=== PATIENT | female | born 2000 | race Caucasian/White ===

== ENCOUNTER 2022-12-28 14:21 | Emergency (ER) | payer OTHER, BC, SELFPAY ==
--- NOTE | ~2022-12-28 | XR_ITS ---
XR thoracic spine 3V DATE: 12/28/2022 14:45 INDICATION: Thoracic back pain, tenderness with deep inspiration TECHNIQUE: AP and lateral views COMPARISON: None FINDINGS: No fracture or dislocation of the thoracic spine. The thoracic pedicles are intact. No pa raspinal soft tissue thickening. IMPRESSION: Negative Reviewed, dictated and finalized at location B. WORKER IMPRESSION: Negative
[2022-12-28 14:30] VITALS: BP 133/80; PULSE 91; RESP 20; TEMP 36.9; O2SAT 100
--- NOTE | 2022-12-28 14:52 | ED.BACK ---
HPI - Back Pain/Injury General Chief Complaint: Back Pain/Injury Stated Complaint: UPPER BACK PAIN WITH DEEP BREATH Time Seen by Provider: 12/28/22 14:35 Source: patient Mode of arrival: ambulatory Limitations: no limitations History of Present Illness HPI Narrative: 22-year-old female presents with complaint of mid back pain since yesterday. Denies injury. No chest pain or shortness of breath. Reports pressure to mid/upper back. Pain worse when taking deep breath. Has not taking any wauc-gga-ulyuwsn pain meds to treat her symptoms. Ambulatory with steady gait. All systems reviewed and negative except as noted above. Related Data Allergies Allergy/AdvReac Type Severity Reaction Status Date / Time No Known Allergies Allergy Verified 12/28/22 14:34 Review of Systems Review of Systems: CONSTITUTIONAL: Denies fever, chills, or sweats. EYES: Denies visual changes, redness, or discharge. ENT: Denies rhinorrhea, congestion, sore throat, or otalgia. CARDIOVASCULAR: Denies chest pain, palpitations, or edema. RESPIRATORY: Denies cough or dyspnea. GASTROINTESTINAL: Denies abdominal pain, nausea, vomiting, or diarrhea. GENITOURINARY: Denies dysuria or hematuria. SKIN: Denies rash or itching. MUSCULOSKELETAL: Reports mid upper back pain. Denies joint pain, or myalgia. NEUROLOGIC: Denies headache, numbness, or weakness. PSYCHIATRIC: Denies anxiety or depression. All other systems reviewed are negative, except as documented in HPI. PMFSH Comments At time of signature, agree with nursing past medical, surgical, social and family history. There is no relevant family history pertinent to the presenting complaint. Exam Narrative: GENERAL: This is a well-nourished, well-developed patient, in no apparent distress. HEAD: normocephalic, atraumatic. EYES: PERRL. Sclera clear/white. Vision is grossly intact. EARS: External ears normal NOSE: External nose normal NECK: Neck supple, non-tender without lymphadenopathy, masses or thyromegaly. CARDIOVASCULAR: Regular rate and rhythm without murmurs, gallops, or rubs. RESPIRATORY: Clear to auscultation. Breath sounds equal bilaterally. No wheezes, rales, or rhonchi. SKIN: warm, Dry, intact with no suspicious lesions or rash, good texture and turgor. NEURO: awake, alert, and oriented to person, place and time. There were no obvious focal neurologic abnormalities. EXTREMITIES: No joint tenderness, effusion, or edema noted. BACK: tenderness T5-T7 on palpation. no deformity. no muscular tenderness/spasm. ROM normal. Course Course Level of Care: Express Care Visit Vital Signs Vital signs: Vital Signs Temperature 36.9 C 12/28/22 14:30 Pulse Rate 91 12/28/22 14:30 Respiratory Rate 20 12/28/22 14:30 Blood Pressure 133/80 12/28/22 14:30 Pulse Oximetry 100 12/28/22 14:30 Oxygen Delivery Room Air 12/28/22 14:30 Temperature 36.9 C 12/28/22 14:30 Pulse Rate 91 12/28/22 14:30 Respiratory Rate 20 12/28/22 14:30 Blood Pressure 133/80 12/28/22 14:30 Pulse Oximetry 100 12/28/22 14:30 Oxygen Delivery Room Air 12/28/22 14:30 Reviewed MDM - Back Pain/Injury MDM Narrative Medical decision making narrative: Patient is aware of diagnosis, understands and agrees to treatment plan. Anticipatory guidance given. Patient agrees to follow-up as directed and is aware of reasons to seek care at the emergency department. Portions of this record may have been created with voice recognition software Lungs clear to auscultation. Thoracic x-ray normal. 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 Recommend she work on her posture when sitting/standing. Recommend taking ibuprofen every 6-8 hours. Will prescribe steroids to treat inflammation. Imaging Data My impression: agree with radiologist Radiologist's impression: XR thoracic spine 3V DATE: 12/28/2022 14:45 INDICATION: Thoracic back pain, tenderness with deep inspir
== END 2022-12-28 15:00 | disposition home or self-care (01) ==
PROVIDERS: Emergency Provider Nurse Practitioner Family
DX: S29.012A Strain of muscle and tendon of back wall of thorax, initial encounter (principal); X58.XXXA Exposure to other specified factors, initial encounter
CPT/HCPCS: 72072; 99213; G0463

== ENCOUNTER 2023-02-07 08:02 | Emergency (ER) | payer OTHER, BC, SELFPAY ==
--- NOTE | 2023-02-07 08:06 | ED.URI ---
HPI - URI/Sore Throat General Chief Complaint: Upper Respiratory Infection Stated Complaint: Sore Throat Time Seen by Provider: 02/07/23 08:04 Source: patient Mode of arrival: ambulatory Limitations: no limitations History of Present Illness HPI Narrative: Berta is a 22-year-old female patient presenting to the clinic today with complaints of a sore throat x2 days. She reports no known fever, headache, shortness of breath, or chest pain. MD elicited complaint: sore throat and nasal congestion Related Data Allergies Allergy/AdvReac Type Severity Reaction Status Date / Time No Known Allergies Allergy Verified 12/28/22 14:34 Review of Systems Review of Systems: Pertinent positives per HPI. Patient denies any fever, chills, rash, headache, visual changes, dizziness, cough, shortness of breath, chest pain, palpitations, nausea, vomiting, diarrhea, constipation, abdominal pain, or any urinary issues. PMFSH Comments At the time of my signature, I reviewed and agree with the nursing past medical, surgical, social, and family history. There is no relevant family history pertinent to the patient complaint. Exam Narrative: General: Well-developed, well nourished, in no apparent distress Head: Normocephalic, atraumatic Eyes: Pupils equally round and reactive to light bilaterally, EOM intact, sclera and conjunctive clear, no discharge, lids normal Ears: TMs intact and clear, ear canals clear, no drainage, grossly hearing normal. Nose: Nares patent, clear nasal discharge, no inflammation, no sinus tenderness. Mouth: Oral pharynx red with bilateral tonsillar enlargement and exudate without lesions or masses, good dentition, MMM. Neck: Supple, trachea midline, enlargement of anterior cervical nodes, no thyroid masses or goiter palpable. Cardio: Regular rate and rhythm, s1 and s2 normal, no murmur appreciated. Resp: Clear to auscultation bilaterally, no rhonchi, rales, wheezing or rubs Course Course Emergency Course: Portions of this record may have been created with voice recognition software. Level of Care: Express Care Visit Vital Signs Vital signs: Vital signs reviewed MDM - URI/Sore Throat MDM Narrative Medical decision making narrative: At the time of visit patient is resting comfortably on the exam table. Patient appears to be nontoxic. Strep screen screen was obtained and positive in the clinic today. Prescription for amoxicillin and prednisone was sent to the pharmacy. Supportive measures were discussed with the patient and they voiced understanding discharge instructions and agrees to treatment plan. Return precautions reviewed Differential Diagnosis Differential diagnosis: Likely upper respiratory infection, otitis media, sinusitis, viral infection, bronchitis, influenza, pharyngitis and other (COVID) Discharge Plan Discharge Clinical Impression: Acute streptococcal pharyngitis Patient Disposition: Home, Self-Care Condition: Stable Instructions: Antibiotic Form, Strep Throat (ED) Additional Instructions: Strep test was positive in the clinic today. Change your toothbrush in 24 hours after initiation of the antibiotics Take prescription medications only as prescribed-amoxicillin, viscous lidocaine, and prednisone Increase fluids and stay well hydrated Tylenol/motrin for pain/fever Flonase and OTC antihistamines as directed Vicks vapor rub to open sinuses Sinus rinses for congestion Cepacol spray, cough drops, throat lozenges, warm tea with honey/lemon, gargle salt water to soothe throat BRAT diet for diarrhea Clear liquids x 24 hours then advance as tolerated for nausea/vomiting Go to the ED if you develop a worsening in your condition- high fever not controlled by Tylenol or Motrin, dehydration, weakness, lethargy, shortness of breath, or chest pain. Follow up with your PCP in 3-5 days if symptoms persist. Prescriptions: New amoxicillin 500 mg capsule 500 m
[2023-02-07 08:17] VITALS: BP 115/78; PULSE 78; RESP 16; TEMP 36.8; O2SAT 99
== END 2023-02-07 08:27 | disposition home or self-care (01) ==
PROVIDERS: Emergency Provider Nurse Practitioner Family
DX: J02.0 Streptococcal pharyngitis (principal)
CPT/HCPCS: 87880; 99213; G0463

== ENCOUNTER 2023-10-25 12:07 | Emergency (ER) | payer OTHER, BC, SELFPAY ==
[2023-10-25 12:15] VITALS: BP 121/82; PULSE 82; RESP 16; TEMP 36.9; O2SAT 100
--- NOTE | 2023-10-25 12:18 | ED.GENADULT ---
HPI - General Adult General Chief complaint: Abdominal Pain Stated complaint: Nausea/Vomiting Time Seen by Provider: 10/25/23 12:18 Source: patient, RN notes reviewed and old records reviewed Mode of arrival: ambulatory Limitations: no limitations History of Present Illness HPI narrative: 23-year-old female to Express Care for complaint of nausea with vomiting upon wakening today. Patient reports vomiting 3 times this morning. patient reports that she has not vomited the last several hours that she feels as though she is doing better. Patient states that she has been able to tolerate fluids by mouth without vomiting the past several hours. Patient denies abdominal pain, current nausea vomiting, diarrhea, urinary changes, fever, Allergies, pertinent medical history. Patient has not attempted to treat at home with [id number] remedies. Patient is sitting comfortably in exam room in no acute distress. Respirations even and nonlabored. Related Data Home Medications Medication Instructions Recorded Confirmed desogestrel 0.15 mg-ethinyl 1 tablet PO DAILY 10/25/23 10/25/23 estradiol 0.03 mg tablet (Isibloom) Allergies Allergy/AdvReac Type Severity Reaction Status Date / Time No Known Allergies Allergy Verified 10/25/23 12:13 Review of Systems Review of Systems: All systems reviewed & are unremarkable except as noted in HPI and below Constitutional: Constitutional: Reports no additional constitutional complaints Eyes: Eyes: Reports no additional eye complaints ENT: Reports system reviewed and no additional complaints, except as documented Cardiovascular: Cardiovascular: Reports no additional cardiovascular complaints, Denies chest pain and Denies dyspnea Respiratory: Respiratory: Reports no additional respiratory complaints, Denies cough and Denies dyspnea Gastrointestinal: Gastrointestinal: Reports as per HPI, Reports nausea and Reports vomiting Musculoskeletal: Musculoskeletal: Reports no additional musculoskeletal complaints Neurologic: Reports system reviewed and no additional complaints, except as documented Psychiatric: Psychiatric: Reports no additional psychiatric complaints PMFSH Comments At the time of my signature, I reviewed and agree with the nursing past medical, surgical, social, and family history. There is no relevant family history pertinent to the patient complaint. Exam Const: General: cooperative, healthy appearing, comfortable, no acute distress, alert and well nourished Nutritional Appearance: well nourished Orientation/consciousness: patient oriented x3 Limitations: no limitations HENMT: Head: normal to inspection Ears: external ears normal Face/Nose/Sinus: Normal external nose present, Normal nares present, normal facial exam, No erythema and No edema Face and sinus: normal facial exam, no erythema and no edema Mouth: Yes Normal oral and palatal mucosa present Eyes: General: appearance normal, both eyes and all related structures Neck: Neck: normal visual inspection, full ROM and no meningeal signs Lymphatic: no lymphadenopathy noted and no lymphedema noted Chest: Chest palpation & inspection: normal inspection of the chest Resp: Effort & Inspection: normal respiratory effort and able to speak in complete sentences Auscultation: clear to auscultation bilaterally Cardio: Jugular venous distension: no JVD Rate: regular rate Rhythm: regular rhythm Back/Spine/Pelvis: Cervical Spine: cervical ROM normal Skin: General skin exam: normal color, no rashes or lesions noted and turgor normal Neuro: General: patient oriented x3, gait normal, moves all extremities and no meningeal signs Speech: normal speech Gait exam (Neuro): Normal gait present Extrem: General: normal to inspection, full ROM and capillary refill normal Psych: Appearance: grossly normal and well kempt Course Course Emergency Course: Some parts of this dictation were generated by voice recognition
== END 2023-10-25 12:26 | disposition home or self-care (01) ==
PROVIDERS: Emergency Provider Nurse Practitioner Family
DX: K52.9 Noninfective gastroenteritis and colitis, unspecified (principal)
CPT/HCPCS: 99211; G0463

== ENCOUNTER 2023-10-29 11:11 | Emergency (ER) | payer OTHER, BC, SELFPAY ==
[2023-10-29 11:38] VITALS: BP 134/72; PULSE 104; RESP 20; TEMP 37.1; O2SAT 100
--- NOTE | 2023-10-29 12:44 | ED.NAVMDI ---
HPI - Nausea/Vomiting/Diarrhea General Chief complaint: Nausea/Vomiting/Diarrhea Stated complaint: Nausea and Vomiting Time Seen by Provider: 10/29/23 12:38 Source: patient and RN notes reviewed Mode of arrival: ambulatory Limitations: no limitations History of Present Illness HPI Narrative: Patient presents today complaining of nausea and vomiting that started at 3:30 a.m. this morning. She had 3 episodes of vomiting at that time and has not vomited since about 4:00 a.m.. She has been able to keep water down since that time, but has not tried food. States she had a small episode of diarrhea. Denies any abdominal pain or fever. Reports she came in today for work note as she had to call in today. States she had some similar symptoms 4 days ago and was seen here at [facility]. Related Data Home Medications Medication Instructions Recorded Confirmed desogestrel 0.15 mg-ethinyl 1 tablet PO DAILY 10/25/23 10/29/23 estradiol 0.03 mg tablet (Isibloom) Allergies Allergy/AdvReac Type Severity Reaction Status Date / Time No Known Allergies Allergy Verified 10/29/23 12:14 Review of Systems Review of Systems: CONSTITUTIONAL: Denies body aches, fever, chills, or sweats. EYES: Denies visual changes, redness, or discharge. ENT: Denies rhinorrhea, congestion, sore throat, or otalgia. CARDIOVASCULAR: Denies chest pain, palpitations, or edema. RESPIRATORY: Denies cough or dyspnea. GASTROINTESTINAL: Denies abdominal pain. + nausea, vomiting, diarrhea GENITOURINARY: Denies dysuria or hematuria. SKIN: Denies rash, itching, or wounds. MUSCULOSKELETAL: Denies back pain, joint pain, or myalgia. NEUROLOGIC: Denies headache, numbness, tingling, or weakness. PSYCH: Denies depression or anxiety. PMFSH Comments At time of signature, I have reviewed and agree with nursing past medical, surgical, social and family history unless otherwise noted. Please see nursing chart for further information. There is no relevant family history pertinent to the presenting complaint Exam Narrative: GENERAL: Well-appearing, well-nourished, and in no acute distress. HEAD: Normocephalic, atraumatic. EYES: EOMI. No redness or drainage. Conjunctivae normal. ENT: Mucous membranes pink and moist. NECK: Normal AROM. CHEST: No respiratory distress. Clear to auscultation. HEART: Regular rate and rhythm. No murmur appreciated. Normal peripheral pulses. ABDOMEN: Soft, nontender, nondistended, normal active bowel sounds. EXTREMITIES: Normal range of motion. No edema. SKIN: Warm, dry, no rash. Capillary refill normal. Normal skin turgor. NEURO: No focal deficits. Alert and oriented x3. Gait steady. PSYCH: Normal affect. No signs of depression or anxiety. Course Course Level of Care: Express Care Visit Vital Signs Vital signs: Vital Signs Temperature 98.7 F 10/29/23 11:38 Pulse Rate 104 H 10/29/23 11:38 Respiratory Rate 20 10/29/23 11:38 Blood Pressure 134/72 10/29/23 11:38 Pulse Oximetry 100 10/29/23 11:38 Temperature 98.7 F 10/29/23 11:38 Pulse Rate 104 H 10/29/23 11:38 Respiratory Rate 20 10/29/23 11:38 Blood Pressure 134/72 10/29/23 11:38 Pulse Oximetry 100 10/29/23 11:38 Reviewed MDM - Nausea/Vomiting/Diarrhea MDM Narrative Medical decision making narrative: Patient's symptoms have resolved. Will provide her with a short course of Zofran in case symptoms return. Work note provided. Anticipatory guidance given. Differential Diagnosis Differential diagnosis: Likely food poisoning, gastroenteritis, dehydration and other (Viral syndrome) Critical Care Time Critical Care Time Critical Care Time: No Discharge Plan Discharge Clinical Impression: Nausea & vomiting Qualifiers: Vomiting type: unspecified Qualified Code(s): R11.2 - Nausea with vomiting, unspecified Patient Disposition: Home, Self-Care Condition: Stable Instructions: Acute Nausea and Vomiting (ED) Additional Instr
== END 2023-10-29 12:52 | disposition home or self-care (01) ==
PROVIDERS: Emergency Provider Nurse Practitioner
DX: R11.2 Nausea with vomiting, unspecified (principal); Z80.9 Family history of malignant neoplasm, unspecified
CPT/HCPCS: 99213; G0463

== ENCOUNTER 2024-03-28 09:23 | Emergency (ER) | payer OTHER, BC, SELFPAY ==
[2024-03-28 09:34] VITALS: BP 137/81; PULSE 94; RESP 16; TEMP 37.1; O2SAT 100
--- NOTE | 2024-03-28 09:44 | ED_ITS ---
HPI - URI/Sore Throat General Chief Complaint: Upper Respiratory Infection Stated Complaint: BODY ACHES/SINUS PRESSURE/HEADACHE/FEVER Time Seen by Provider: 03/28/24 09:44 Source: patient Mode of arrival: ambulatory Limitations: no limitations History of Present Illness HPI Narrative: 23-year-old female presents with complaint of cough, nasal congestion, fatigue starting yesterday. 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 No chest pain or shortness of breath. Denies nausea vomiting diarrhea. All systems reviewed and negative except as noted above. Related Data Home Medications ?Medication ?Instructions ?Recorded ?Confirmed ?Last Taken ?Type desogestrel 0.15 mg-ethinyl 1 tablet PO DAILY 10/25/23 03/28/24 Unknown History estradiol 0.03 mg tablet (Isibloom) Allergies Allergy/AdvReac Type Severity Reaction Status Date / Time No Known Allergies Allergy Verified 03/28/24 09:32 Review of Systems Review of Systems: CONSTITUTIONAL: Denies fever, chills, or sweats. Reports fatigue. EYES: Denies visual changes, redness, or discharge. ENT: Reports rhinorrhea, congestion, sore throat. Denies otalgia. CARDIOVASCULAR: Denies chest pain, palpitations, or edema. RESPIRATORY: Reports cough. Denies dyspnea. GASTROINTESTINAL: Denies abdominal pain, nausea, vomiting, or diarrhea. GENITOURINARY: Denies dysuria or hematuria. SKIN: Denies rash or itching. MUSCULOSKELETAL: Denies back pain, joint pain, or myalgia. NEUROLOGIC: Denies headache, numbness, or weakness. PSYCHIATRIC: Denies anxiety or depression. All other systems reviewed are negative, except as documented in HPI. COUNTS INCLUDE 234 BEDS AT THE [facility] Surgical History Surgical History (Updated 11/01/23 @ 09:20 by Amaya Jeronimo CMA) [place] teeth removed 2020 Social History Social History (Updated 11/01/23 @ 09:23 by Amaya Jeronimo CMA) Smoking status: Never smoker Alcohol intake: current Alcohol use details: drinks 1-4 per week Substance use: never Do You Feel Safe in your Home?: Yes Lack of Transportation: No Lack of Food: Never True Current Housing: I Have Housing Concerned About Future Housing: No Difficulty Paying Gas/Electric Bills: No Difficulty Paying for Meds: No Currently Unemployed: No Education: Associate Degree Difficulty w/ Childcare or Family Care: No Comments At time of signature, agree with nursing past medical, surgical, social and family history. There is no relevant family history pertinent to the presenting complaint. Exam Narrative: GENERAL: This is a well-nourished, well-developed patient, ill-appearing but no acute distress HEAD: normocephalic, atraumatic. EYES: PERRL. Sclera clear/white. Vision is grossly intact. EARS: External ears normal, auditory canals clear and without drainage, TMs normal without perforation. Hearing grossly intact. NOSE: External nose normal with congestion, clear nasal drainage THROAT: Mucous membranes moist, posterior pharynx clear. NECK: Neck supple, non-tender without lymphadenopathy, masses or thyromegaly. CARDIOVASCULAR: Regular rate and rhythm without murmurs, gallops, or rubs. RESPIRATORY: Clear to auscultation. Breath sounds equal bilaterally. No wheezes, rales, or rhonchi. SKIN: warm, Dry, intact with no suspicious lesions or rash, good texture and turgor. NEURO: awake, alert, and oriented to person, place and time. There were no obvious focal neurologic abnormalities. EXTREMITIES: No joint tenderness, effusion, or edema noted. Course Course Level of Care: Express Care Visit Vital Signs Vital signs: Vital Signs Temperature 37.1 C 03/28/24 09:34 Pulse Rate 94 03/28/24 09:34 Respiratory Rate 16 03/28/24 09:34 Blood Pressure 137/81 03/28/24 09:34 Pulse Oximetry 100 03/28/24 09:34 Temperature 37.1 C 03/28/24 09:34 Pulse Rate 94 03/28/24 09:34 Respiratory Rate 16 03/28/24 09:34 Blood Pressure 137/81 03/28/24 09:34 Pulse Oximetry 100 03/28/24 09:34 Reviewed MDM - URI/Sore Throat MDM Narrative Medical decision making narrative: Positive influenza a. Patient is well-appearing, nontoxic. Will treat with Tamiflu. Please be advised this is a medical document. It is intended for gwze-fs-hybd communication. It is written in medical language and may contain unfamiliar abbreviations or verbiage. Medical documents are intended to carry relevant information, facts as evident, and the clinical opinion of the practitioner at the time of the encounter. This report may have been done utilizing a voice recognition system. Attempts have been made to correct errors. However, there may be uncorrected grammatical, spelling, and recognition errors present. The file time of this note does not necessarily represent the time of service. Differential Diagnosis Differential diagnosis: Likely upper respiratory infection, sinusitis, viral infection, influenza and pharyngitis Discharge Plan Discharge Clinical Impression: Influenza A Patient Disposition: Home, Self-Care Condition: Stable Instructions: Influenza (ED) Additional Instructions: You were positive for influenza today. Influenza is a virus and symptoms may last 10-14 days. Take Tamiflu as prescribed. Taking oldv-udf-yqfcovn medication to treat her symptoms such as DayQuil NyQuil cold and flu. Take as directed on packaging. Take Tylenol or ibuprofen every 6-8 hours as needed for pain and fever. Drink plenty of water and rest. Follow-up your primary care physician if symptoms are not improving. Patient Language: Albanian Prescriptions: New oseltamivir [Tamiflu] 75 mg capsule 75 mg PO Q12H 5 Days Qty: 10 0RF No Action desogestrel-ethinyl estradiol [Isibloom] 0.15-0.03 mg tablet 1 tablet PO DAILY escitalopram oxalate [Lexapro] 10 mg tablet 10 mg PO DAILY Qty: 30 2RF Follow-up/Referrals: Rachelle Hannah DO [Primary Care Provider] - Stand Alone Forms: Work/School Release IP Time of Disposition: 09:51
[2024-03-28 09:52] LABS: EDCOVIDSCREEN Negative (Negative); EDINFLUASCREEN Positive (Negative); EDINFLUBSCREEN Negative (Negative)
== END 2024-03-28 09:57 | disposition home or self-care (01) ==
PROVIDERS: Emergency Provider Nurse Practitioner Family; PCP Family Medicine
DX: J10.1 Influenza due to other identified influenza virus with other respiratory manifestations (principal); Z20.822 Contact with and (suspected) exposure to COVID-19
CPT/HCPCS: 87426; 87804; 99213; G0463

== ENCOUNTER 2024-11-12 12:10 | Outpatient (CLI) | payer OTHER, BC, SELFPAY ==
--- OUTSIDE RECORDS SUMMARY | 2024-11-12 12:13 | XMS_ITS | Clinical Summary ---
Author Organization [facility] Address [address] [place] [address] Care Team Providers Care Autocad Name Role Phone Yvonne Petersen Primary Care Provider + [phone] Allergies No known active allergies Medications No known medications Active Problems No known active problems Immunizations Immunization Administration Dates Next Due DTaP (Daptacel) 09/05/2006, 3,01/02/2002,2001 Dtap/Hib 12/11/2002 Flumist (Intranasal) 01/13/2010,11/12/2008,11/27 H1N1 INTRANASAL 2009 INFLUENZA 03/26/2009,2009 H1N1 Intranasal 2009 Influenza 03/26/2009,2009 Hepatitis A Vaccine - 2 Dose 09/05/2012,09/06/19 07 Hepatitis B 09/06/2002,03/02/2002,2001 Hib Vaccine, Prp-T 03/02/2002,01/02/2002, 002 Influenza (Generic) 01/18/2006,12/07/2004,2003 MMR 09/05/2006,12/11/2002 Menactra 11/02/2018,09/05/2012 PFIZER COVID-19 (ORIGINAL FORMULATION, PURPLE CAP) mRNA, LNP-S, PF, 30 MCG/0.3 ML DOSE 11/14/2020,06/16/2020 Polio Ipv (Generic) 09/05/2006, 3,01/02/2002,2001 Tdap (Adacel) 06/02/2021,09/05/2012 Varicella (Generic) 09/06/2002 Varicella Vaccine 09/05/2012 Family History Medical History Relation Comments Cancer Maternal Grandfather Cancer Maternal Grandmother Cancer Paternal Grandfather Relation Status Comments Father Alive Maternal Grandfather Maternal Grandmother Mother Alive Paternal Grandfather Social History Tobacco Use Types Packs/Day Years Used Date Smoking Tobacco: Never Smokeless Tobacco: Never Tobacco Cessation:Counseling Given: No Alcohol Use Standard Drinks/Week Comments Not Currently 0 (1 standard drink = 0.6 oz pur e alcohol) PHQ-2 Answer Date Recorded Patient Health Questionnaire-2 Score 0 07/13/2022 Comments No Sex and Gender Information Value Date Recorded Sex Assigned at Not on file Legal Sex Female 6:21 PM CDT Gender Identity Not on file Sexual Orientation Not on file Last Filed Vital Signs Vital Sign Reading Time Taken Comments Blood Pressure 112/82 09/28/2022 11:37 AM CDT Pulse 86 09/28/2022 11:37 AM CDT Temperature 37.2 C (98.9 F) 09/28/2022 11:37 AM CDT Respiratory Rate 18 09/28/2022 11:37 AM CDT Oxygen Saturation 100% 09/28/2022 11:37 AM CDT Inhaled Oxygen Concentration - - Weight 57.2 kg (126 lb) 09/28/2022 11:37 AM CDT Height 170.2 cm (5' 7) 09/28/2022 11:37 AM CDT Body Mass Index 19.73 09/28/2022 11:37 AM CDT Plan of Treatment Health Maintenance Due Date Last Done Comments Cervical Cancer Screening Pap Smear (Age 21 to 29) Every 3 Years 2001 Cervical Cancer Screening 2001 Annual Physical 2004 HPV Vaccines (1 - 3-dose series) 2016 Meningococcal B Vaccine (1 of 2 - Standard) 2017 Hepatitis C 09/05/2019 COVID-19 Vaccine (3 - season) 2024 11/14/2020, 06/16/2020 DTaP, Tdap and Td Vaccines (8 - Td or Tdap) 06/03/2031 06/02/2021, 09/05/2012, 09/05/2006, Additional history exists Hepatitis B Vaccines Completed 09/06/2002, 03/02/2002, 2001 Meningococcal Vaccine Completed 11/02/2018, 013 Pneumococcal Vaccine: Pediatrics (0 to 5 Years) and At-Risk Patients (6 to 49 Years) Aged Out No longer eligible based on patient's age to complete this topic RSV Immunizations Under 20 Months Aged Out No longer eligible based on patient's age to complete this topic Insurance [facility]APHAEL Care Teams Autocad Relationship Specialty [place] [address] [place] [address] 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
[2024-11-12 13:07] LABS: Hematocrit 41.4 % (37.0-47.0); Hemoglobin 13.4 g/dL (12.0-15.0); Immature Granulocyte Percent A 0.4 % (0-0.5); Lymphocytes Absolute Auto 1.95 K/mm3 (0.9-3.2); Mean Corpuscular HGB Conc 32.4 g/dl (32-36); Mean Corpuscular Hemoglobin 28.3 pg (26-34); Mean Corpuscular Volume 87.3 fl (80-100); Nucleated Red Blood Cells Absolute Auto 0.000 K/mm3 (0.0-0.012); Nucleated Red Blood Cells Perc 0.0 % (0.0-0.2); Platelet Count Result 238 k/mm3 (150-375); Red Blood Count 4.74 M/mm3 (4.2-5.4); White Blood Count 8.4 K/mm3 (4.5-10.0)
[2024-11-12 13:51] LABS: Thyroid Stimulating Hormone Reflex 1.310 uIU/mL (0.465-4.68)
[2024-11-12 14:06] LABS: Alanine Aminotransferase 16 U/L (6-35); Albumin Level 4.6 g/dL (3.5-5.1); Alkaline Phosphatase 56 U/L (38-126); Anion Gap 8 mmol/L (4-12); Aspartate Amino Transferase 33 U/L (14-36); Bilirubin,Total 0.6 mg/dL (0.2-1.3); Blood Urea Nitrogen 8 mg/dL (7-17); CRP < 0.5 mg/dL (<1.0); Calcium 9.3 mg/dL (8.4-10.2); Carbon Dioxide 26 mmol/L (22-30); Chloride 102 mmol/L (98-107); Estimated Glomerular Filt Rate > 60; Glucose 83 mg/dL (65-110); Potassium 4.0 mmol/L (3.4-5.0); Sodium 136 mmol/L (137-145); Total Protein 7.8 g/dL (6.3-8.2)
[2024-11-12 14:14] LABS: HIV 1/2 Ab P24 Ag Result Negative (Negative)
== END 2024-11-12 12:11 | disposition home or self-care (01) ==
LOC: ANHLAB 12:11
PROVIDERS: PCP Family Medicine; Visit Provider Family Medicine
DX: R61 Generalized hyperhidrosis (principal)
CPT/HCPCS: 36415; 80053; 84443; 85025; 86140; 86703; G0432

== ENCOUNTER 2024-11-18 09:04 | Outpatient (CLI) | payer OTHER, BC, SELFPAY ==
--- NOTE | ~2024-11-18 | MMUS_ITS ---
EXAMINATION: MM diagnostic ceci RT w manasa, US breast RT limited INDICATION: 24-year old female; BI-RADS 0, callback to evaluate Right breast palpable area ongoing for 3 weeks COMPARISON: Baseline TECHNIQUE: Digital breast tomosynthesis ML and spot compression CC and MLO views of right breast were obtained with computer-aided detection to assist in interpretation of the study. A radiopaque skin marker identifies the palpable lump area. FINDINGS: The breasts are extremely dense, which lowers the sensitivity of mammography. A circumscribed mass in the inferior medial at anterior third correlates to the radiopaque skin marker. Ultrasound was performed for further evaluation. RIGHT BREAST ULTRASOUND FINDINGS: Targeted evaluation of palpable area was completed. At 3:00, 3 cm from the nipple corresponding to the palpable area there is a superficial circumscribed hypoechoic mass with parallel orientation which measure 1.3 x 0.7 x 1.2 cm. This is a probably benign mass. In addition, at 3:00, 1 cm from the nipple there is a markedly hypoechoic mass that is taller than wide which measure 0.7 x 0.6 x 0.8 cm. This lesion is suspicious. IMPRESSION: 1. Suspicious right breast mass at 3:00, 1 cm from the nipple location. This lesion has no mammographic correlate. Recommend biopsy. 2. Indeterminate circumscribed mass at 3:00, 3 cm from the nipple that correlates to the patient's palpable lump. RECOMMENDATION: Ultrasound-guided core needle biopsy, right breast mass at 3:00, 1 cm from the nipple. Ultrasound guided core needle biopsy of palpable solid lesion at 3:00, 3 cm from the nipple. BI-RADS 4, SUSPICIOUS Reviewed, dictated and finalized at location C. IMPRESSION: 1. Suspicious right breast mass at 3:00, 1 cm from the nipple location. This le humberto has no mammographic correlate. Recommend biopsy. 2. Indeterminate circumscribed mass at 3:00, 3 cm from the nipple that correlat es to the patient's palpable lump. RECOMMENDATION: Ultrasound-guided core needle biopsy, right breast mass at 3:00, 1 cm from the nipple. Ultrasound guided core needle biopsy of palpable solid lesion at 3:00, 3 cm fro m the nipple. BI-RADS 4, SUSPICIOUS
== END 2024-11-18 09:05 | disposition home or self-care (01) ==
LOC: MICIMG 09:05
PROVIDERS: PCP Family Medicine; Visit Provider Family Medicine
DX: N63.15 Unspecified lump in the right breast, overlapping quadrants (principal)
CPT/HCPCS: 76642; 77061; 77065; G0279

== ENCOUNTER 2024-11-21 08:13 | Outpatient (CLI) | payer OTHER, BC, SELFPAY ==
--- NOTE | ~2024-11-21 | MMUS_ITS ---
PROCEDURE: US breast biopsy RT w image, US breast bx add lesion RT, MM post biopsy diagnostic RT CLINICAL HISTORY: 24-year-old female with suspicious palpable mass at 3:00, 3 cm from the nipple and additional suspicious right breast mass at 3:00, 1 cm from the nipple presents for ultrasound-guided core needle biopsy procedure. COMPARISON: 11/18/2024 Following informed consent including risks, benefits, and possible complications, the patient was brought to the ultrasound suite. A time-out procedure was performed. A preliminary ultrasound of the right breast was performed, redemonstrating an hypoechoic solid mass at 3:00, 3 cm from the nipple and additional solid hypoechoic mass at 3:00, 1 cm from the nipple. The patient was prepped and draped in the usual sterile fashion. 1% lidocaine was instilled into the subcutaneous tissues. 1% lidocaine without epinephrine was injected into the deep tissues around the lesion. Approximately 10cc lidocaine was administered. A small skin juanis was made. 5 core samples were obtained from the palpable lesion at 3:00, 3 cm from the nipple through a Medial approach with a 14-gauge biopsy needle. A post biopsy coil [place] Henry marker was placed at the biopsy site. The patient was prepped and draped in the usual sterile fashion. 1% lidocaine was instilled into the subcutaneous tissues. 1% lidocaine without epinephrine was injected into the deep tissues around the lesion. Approximately 10cc lidocaine was administered. A small skin juanis was made. 4 core samples were obtained from the palpable lesion at 3:00, 1 cm from the nipple through a Medial approach with a 14-gauge biopsy needle. A post biopsy butterfly [place] Henry marker was placed at the biopsy site. Postprocedural mammogram of the Right breast in craniocaudal and mediolateral projections reveal all 2 post biopsy metal markers in good position. The patient tolerated the procedure well and was without immediate postprocedural complications. IMPRESSION: Successful ultrasound guided biopsy of 2 solid hypoechoic masses in the right breast at 3:00 location. 2 post biopsy metal markers placed at the biopsy sites are in good position, which is seen on postprocedural mammogram. The patient tolerated the procedure well without immediate postprocedure complications. The patient was given postprocedural instructions and sent home in stable condition. Pathology report is pending. Reviewed, dictated and finalized at location B. IMPRESSION: Successful ultrasound guided biopsy of 2 solid hypoechoic masses in the right breast at 3:00 location. 2 post biopsy metal markers placed at the b iopsy sites are in good position, which is seen on postprocedural mammogram. The patient tolerated the procedure well without immediate postprocedure compli cations. The patient was given postprocedural instructions and sent home in sta ble condition. Pathology report is pending. IMPRESSION: Successful ultrasound guided biopsy of 2 solid hypoechoic masses in the right breast at 3:00 location. 2 post biopsy metal markers placed at the b iopsy sites are in good position, which is seen on postprocedural mammogram. The patient tolerated the procedure well without immediate postprocedure compli cations. The patient was given postprocedural instructions and sent home in sta ble condition. Pathology report is pending.
--- NOTE | 2024-11-21 10:37 | S_PTH ---
PATIENT: Berta Tobin LOC: [facility] #:[id number] AGE/SX: 24/ ROOM: RE11/21/[address]: Rachelle Hannah DO : 2000 BED: DIS: 11/21/2024 SPEC #: [id number] RECD: 11/21/24 11:50 STATUS: JUDY REQ #: [id number] MADI: 11/21/24 10:[address]: Rachelle Hannah DEPT: [facility] Surgical RECD BY: Vinita Oropeza Tissues: A - Breast Biopsy B - Breast Biopsy Procedures: Hematoxylin and Eosin Stain Gross and Microscopic Level 4
== END 2024-11-21 08:14 | disposition home or self-care (01) ==
PROVIDERS: PCP Family Medicine; Visit Provider Family Medicine
DX: D24.1 Benign neoplasm of right breast (principal); N63.15 Unspecified lump in the right breast, overlapping quadrants
CPT/HCPCS: 19083; 19084; 77065; 88305; A4648